=== PATIENT | male | born 1990 | race Caucasian/White ===

== ENCOUNTER 2017-12-06 08:02 | Emergency (ER) | payer OTHER, BC ==
[2017-12-06] MEDS ORDERED: DIPHTH,PERTUSS(ACELL),TET 0.5 ML DISP.SYRIN IM ONE (08:14)
[2017-12-06 08:15] VITALS: BP 136/85; PULSE 61; TEMP 97.9; BMI 28.7
--- NOTE | 2017-12-06 08:23 | PDOC ---
History of Present Illness - General Chief Complaint: Injury Stated Complaint: LEFT ELBOW PAIN Time Seen by Provider: 12/06/17 08:06 - History of Present Illness Initial Comments: 12/06/17 08:18 27 M with no PMH presents to ED with L elbow pain and swelling. Pt reports that he fell about 2 feet to the ground, landing directly onto his left elbow. He states that he got up immediately after and continued to work throughout the day. The pain was initially 8/10 but has since subsided to 2/10. Denies any limitation in his ROM. Denies any other injury. Did not hit his head at any point. Pt does not recall last tetanus shot. Past History - Past Medical History Allergies/Adverse Reactions: Allergies Allergy/AdvReac Type Severity Reaction Status Date / Time No Known Allergies Allergy Verified 12/06/17 08:03 Home Medications: Ambulatory Orders Alprazolam [Xanax] 0.5 mg PO PRN PRN 12/06/17 COPD: No - Immunization History Immunization Up to Date: Yes - Suicide/Smoking/Psychosocial Hx Smoking Status: No Smoking History: Never smoked Have you smoked in the past 12 months: No Number of Cigarettes Smoked Daily: 0 Information on smoking cessation initiated: No Hx Alcohol Use: No Drug/Substance Use Hx: No Substance Use Type: None Review of Systems - Review of Systems Comments:: 12/06/17 08:20 "GENERAL/CONSTITUTIONAL: No fever or chills. No weakness. HEAD, EYES, EARS, NOSE AND THROAT: No change in vision. No ear pain or discharge. No sore throat. CARDIOVASCULAR: No chest pain or shortness of breath. RESPIRATORY: No cough, wheezing, or hemoptysis. GASTROINTESTINAL: No nausea, vomiting, diarrhea or constipation. GENITOURINARY: No dysuria, frequency, or change in urination. MUSCULOSKELETAL: + L elbow swelling and pain SKIN: No rash NEUROLOGIC: No headache, vertigo, loss of consciousness, or change in strength/ sensation. ENDOCRINE: No increased thirst. No abnormal weight change. HEMATOLOGIC/LYMPHATIC: No anemia, easy bleeding, or history of blood clots. ALLERGIC/IMMUNOLOGIC: No hives or skin allergy. " *Physical Exam - Vital Signs Last Vital Signs Temp Pulse Resp BP Pulse Ox 97.9 F 61 20 136/85 99 12/06/17 08:03 12/06/17 08:03 12/06/17 08:03 12/06/17 08:03 12/06/17 08:03 - Physical Exam Comments: 12/06/17 08:20 "GENERAL: Awake, alert, and fully oriented, in no acute distress HEAD: No signs of trauma EYES: PERRLA, EOMI, sclera anicteric, conjunctiva clear ENT: Auricles normal inspection, hearing grossly normal, nares patent, oropharynx clear without exudates. Moist mucosa NECK: Nontender, no stepoffs, Normal ROM, supple, no lymphadenopathy, JVD, or masses LUNGS: Breath sounds equal, clear to auscultation bilaterally. No wheezes, and no crackles HEART: Regular rate and rhythm, normal S1 and S2, no murmurs, rubs or gallops ABDOMEN: Soft, nontender, normoactive bowel sounds. No guarding, no rebound. No masses EXTREMITIES: + L elbow with 1cm abrasion, no laceration, + effusion, Normal range of motion, no bony tenderness. sensation intact distally, 5/5 strength NEUROLOGICAL: Cranial nerves II through XII intact. 5/5 strength and sensation in all extremities, Normal speech, normal gait, normal cerebellar function SKIN: Warm, Dry, normal turgor, no rashes or lesions noted. " ED Treatment Course - RADIOLOGY Radiology Studies Ordered: Category Date Time Status ELBOW-LEFT [RAD] Stat Radiology 12/06/17 08:14 Ordered Medical Decision Making - Medical Decision Making 12/06/17 08:21 27 M with L elbow effusion after falling directly on it. No bony tenderness on exam to suggest fx. Likely olecranon bursitis 2/2 trauma. Pt with no laceration to repair. - XR L elbow - Tdap 12/06/17 08:58 XR negative for acute fx. Pt likely with traumatic olecranon bursitis. Pt is well appearing, with normal vitals. Clinically stable for DC at this time. I discussed the physical exam findings, ancillary test results and final diagnoses with the patient. I answered all of the patient's questions. The patient was satisfied with the care received and felt comfortable with the discharge plan and treatment plan. The patient agrees to follow up with the primary care physician within 24-72 hours. *DC/Admit/Observation/Transfer Diagnosis at time of Disposition: Olecranon bursitis - Discharge Dispostion Disposition: HOME - Referrals Referrals: Josue Moya MD [Staff Physician] - - Patient Instructions Printed Discharge Instructions: DI for Elbow Bursitis Additional Instructions: You have olecranon bursitis. Apply ice and keep it elevated to reduce the swelling. Take ibuprofen as needed for pain. Apply antibiotic ointment twice daily to your wound to help prevent infection. If you experience worsening pain, swelling, redness, difficulty ranging your elbow, or any other concerning symptoms, return to the ER immediately. Otherwise, follow up with an orthopedic surgeon within 1-2 weeks for further evaluation of your bursitis. Call the number provided to make an appointment. - Post Discharge Activity Forms/Work/School Notes: Back to Work - Attestations Physician Attestion: 12/06/17 08:26 I, Dr. Blanco Prater MD, attest that this document has been prepared under my direction and personally reviewed by me in its entirety. I further attest, that it accurately reflects all work, treatment, procedures and medical decision -making performed by me.
== END 2017-12-06 09:36 | disposition home or self-care (01) ==
LOC: FER 08:02
PROC: 3E0234Z Introduction of Serum, Toxoid and Vaccine into Muscle, Percutaneous Approach (ICD-10-PCS; principal; 2017-12-06)
DX: M70.22 Olecranon bursitis, left elbow (principal); W18.39XA Other fall on same level, initial encounter; Y93.89 Activity, other specified; Y92.9 Unspecified place or not applicable
CPT/HCPCS: 73070-TC-LT-FY; 90715; 99281-25

== ENCOUNTER 2020-08-15 13:43 | Emergency (ER) | payer BC | END 2020-08-15 14:51 | disposition home or self-care (01) | LOC: JVIRT 13:43 | DX: Z03.818 Encounter for observation for suspected exposure to other biological agents ruled out (principal) | CPT/HCPCS: C9803; G2012-GT; U0003 ==

== ENCOUNTER 2020-10-11 12:07 | Emergency (ER) | payer BC | END 2020-10-11 12:46 | disposition home or self-care (01) | LOC: JVIRT 12:07 | DX: Z11.52 Encounter for screening for COVID-19 (principal) | CPT/HCPCS: C9803; G2012-GT; U0003 ==

== ENCOUNTER 2021-01-25 10:10 | Emergency (ER) | payer BC ==
[2021-01-25] MEDS ORDERED: LORazepam 1 MG TABLET PO ONE (10:30)
[2021-01-25 10:31] VITALS: TEMP 99; BMI 30.8
[2021-01-25] MEDS ORDERED: LACTATED RINGERS SOLUTION 1000 ML INFUS.BAG IV ONE (11:06)
[2021-01-25 11:53] LABS: BASO % 0.7 % (0-2.0); EOS % 0.6 % (0-4.5); HEMATOCRIT 42.3 % (35.4-49); LYMPH % 26.1 % (8-40); MCH 30.9 pg (25.7-33.7); MCHC 35.5 g/dl (32.0-35.9); MEAN CELL VOLUME 87.1 fl (80-96); MEAN PLT VOLUME 7.6 fl (7.5-11.1); MONO % 6.1 % (3.8-10.2); NEUT % 66.5 % (42.8-82.8); PLATELET COUNT 224 K/MM3 (134-434); RBC 4.86 M/mm3 (4.00-5.60); RDW 14.5 % (11.9-15.9); WHITE BLOOD COUNT 9.4 K/mm3 (4.0-10.0)
[2021-01-25] MEDS ORDERED: LORazepam 1 MG TABLET ONE (12:03)
[2021-01-25 12:12] LABS: CHLORIDE 102 mmol/L (98-107); SODIUM 138 mmol/L (136-145)
[2021-01-25 12:14] LABS: CALCIUM 9.2 mg/dL (8.5-10.1); GLUCOSE,RANDOM 116 mg/dL (74-106)
[2021-01-25 12:15] LABS: ALBUMIN 4.6 g/dl (3.4-5.0); ANION GAP 14 MMOL/L (8-16); BLOOD UREA NITROGEN 12.5 mg/dL (7-18); CO2 22 mmol/L (21-32); MAGNESIUM 1.8 mg/dL (1.8-2.4)
[2021-01-25 12:18] LABS: SGOT/AST 41 U/L (15-37); SGPT/ALT 60 U/L (13-61)
[2021-01-25 12:19] LABS: TOT PROT 7.7 g/dl (6.4-8.2)
[2021-01-25 12:20] LABS: ALK PHOS 71 U/L (45-117)
[2021-01-25 12:28] LABS: BILIRUBIN,TOTAL 0.7 mg/dL (0.2-1)
[2021-01-25 14:39] VITALS: BP 111/64; PULSE 74
== END 2021-01-25 14:38 | disposition home or self-care (01) ==
LOC: JER 10:10
PROC: 3E0234Z Introduction of Serum, Toxoid and Vaccine into Muscle, Percutaneous Approach (ICD-10-PCS; principal; 2021-01-25)
DX: F41.9 Anxiety disorder, unspecified (principal)
CPT/HCPCS: 36415; 71045-TC-FY; 80053; 82550; 82553; 83735; 84484; 85025; 93005; 93010; 99285-25; C9803; U0003; U0005